=== PATIENT | female | born 1990 | race Caucasian/White ===

== ENCOUNTER 2018-07-25 15:25 | Inpatient (IN) | END 2018-07-27 16:30 | disposition home or self-care (01) | DRG 581 ==

== ENCOUNTER 2018-08-04 05:51 | Emergency (ER) | END 2018-08-04 08:11 | disposition home or self-care (01) ==

== ENCOUNTER 2018-09-26 08:03 | Day surgery (SDC) | payer MEDICAID ==
[2018-09-26] VITALS (10 sets, daily range): BP systolic 107–118; BP diastolic 63–77; PULSE 75–88; RESP 17–20; Ht 162.6 cm; Wt 93.0 kg
[~2018-09-26] VITALS: Ht 162.6 cm; Wt 93.0 kg
[~2018-09-26 08:03] MED LIST: CEPH-443 PO; DOCU-144 PO; HYDR-3601 PO; HYDR-4011 PO; ONDA4TAB8 PO
[2018-09-26] MEDS ORDERED: POLYMYXIN/BACITRACIN 1L IRRIG IRR ONE (08:30)
[2018-09-26] MEDS ORDERED: SOD CHLORIDE 0.9% 1,000 ML IV SCH (08:30)
[2018-09-26] MEDS ORDERED: CEFAZOLIN 1 GM/50 ML (PMX) 50 ML IVPB ONE ×2 (08:30→09:02)
[2018-09-26] MEDS ORDERED: HEPARIN 1000 UNITS/ML 10 ML INJ ONE (09:02)
[2018-09-26] MEDS ORDERED: MIDAZOLAM 1 MG/ML 2 ML INJ ONE (09:02)
[2018-09-26] MEDS ORDERED: FENTAnyl 50 MCG/ML VIAL ONE (09:02)
[2018-09-26] MEDS ORDERED: LIDOCAINE 1%/EPI (1:100,000) (MDV) 20 ML ONE (09:02)
[2018-09-26] MEDS ORDERED: SOD CHLORIDE 0.9% 500 ML ONE (09:03)
--- NOTE | 2018-09-26 11:06 | HPN ---
Date/Time of Note Date/Time of Note DATE: 09/26/18 TIME: 11:06 Interval H&P Admission Note Pt. seen H&P reviewed: No system changes DARRYL SCHULTZ MD Sep 26, 2018 11:06
[2018-09-26] MEDS ORDERED: HYDROCODONE/APAP (5/325) TAB PO PRN (11:30)
--- NOTE | 2018-09-28 01:49 | RADRPT ---
Echocardiogram Report Patient Name: MAXINE MONTEZ Gender: Female Date: 1990 Study Date: 26-Sep-2018 Station Engineer Chief: Marilyn Garner RDCS Location: [facility] Ref. Physician: MARTINA LAM Quality: Good Procedures: Transthoracic echocardiogram with complete 2D, M-Mode, and doppler examination. Indications: Breast Cancer. 2D/M Mode Doppler Measurement Value Normal Ranges Measurement Value Normal Ranges LVIDd 2D 3.9 3.5 - 5.6 cm AV Peak Campos 1.3 m/sec LVIDs 2D 2.3 2.1 - 4.1 cm AV Peak PG 7.0 mmHg FS 2D 41.1 % LVOT Peak Campos 1.0 m/sec LVPWd 2D 1.0 0.6 - 1.1 cm LVOT Peak PG 4.0 mmHg IVSd 2D 1.1 0.6 - 1.1 cm MV E Peak Campos 0.8 m/sec IVS/LVPW 2D 1.1 MV A Peak Campos 0.6 m/sec AoR Diam 2D 3.0 2.0 - 3.7 cm MV E/A 1.2 LA/Ao 2D 1 0 - 1 MV Decel Time 197 msec EDV 2D 58.9 cm3 MV E/A 1.2 ESV 2D 12.0 cm3 TR Peak Campos 2.3 m/sec LA Dimen 2D 3.2 2.3 - 4.0 cm TR Peak PG 22.0 mmHg RVSP 25.0 mmHg RA Pressure 3.0 Findings Left Ventricle: Normal left ventricular systolic function. Normal left ventricular cavity size. Mild concentric left ventricular hypertrophy. Ejection fraction is visually estimated at 60 %. Tissue Doppler/Mitral Doppler indices are within normal limits. Right Ventricle: Normal right ventricular size. Normal right ventricular systolic function. Left Atrium: The left atrium is normal in size. Right Atrium: The right atrium is normal in size. Mitral Valve: Normal appearance and function of the mitral valve with trace physiologic regurgitation. Aortic Valve: Normal appearance of the aortic valve. No significant aortic stenosis or insufficiency. Tricuspid Valve: Normal appearance of the tricuspid valve. Estimated peak PA systolic pressure 25 mmHg. There is trace tricuspid regurgitation. Pulmonic Valve: Normal pulmonic valve appearance. Pericardium: Normal pericardium with no significant pericardial effusion. Aorta: Normal aortic root. IVC: Normal size and normal respiratory collapse consistent with normal right atrial pressure. Conclusions Normal left ventricular systolic function. Normal left ventricular cavity size. Mild concentric left ventricular hypertrophy. Ejection fraction is visually estimated at 60 %. Tissue Doppler/Mitral Doppler indices are within normal limits. Normal right ventricular size. Normal right ventricular systolic function. The left atrium is normal in size. Normal appearance of the aortic valve. No significant aortic stenosis or insufficiency. Normal appearance of the tricuspid valve. Estimated peak PA systolic pressure 25 mmHg. There is trace tricuspid regurgitation. Normal pericardium with no significant pericardial effusion. Normal aortic root. Normal size and normal respiratory collapse consistent with normal right atrial pressure. No Vegetation, masses, or thrombi seen. Electronically Signed By: Mg Merchant 28-Sep-2018 01:48:20 -0800 Patient Name: MAXINE MONTEZ Study Date: 26-Sep-2018 [id number]
== END 2018-09-26 13:15 | disposition home or self-care (01) ==
LOC: SDS 08:03
PROVIDERS: ATTEND Internal Medicine Hematology & Oncology
DX: C50.912 Malignant neoplasm of unspecified site of left female breast (principal)
CPT/HCPCS: 36561; 76937; 93306; C1788; J0690; J1644; J2250; J3010; J7040; Z7610; 76942